=== PATIENT | male | born 1970 | race Caucasian/White ===

== ENCOUNTER 2017-05-26 17:07 | Emergency (ER) | payer SELFPAY ==
--- NOTE | ~2017-05-26 | CR63 ---
[facility] A Service of [facility] RADIOLOGY TEXT RESULTS PATIENT: LATASHA PARKER LOCATION: [facility] : [birth year] UNIT #: [id number] AGE: [address]: Marizol Sanchez MD SEX: M ORDER DR: [id number] [facility]. [place], [place] [address] [id number] E MR#: [id number] #: [id number] NAME: LATASHA PARKER. : 1970 SEX: M STUDY DATE/TIME: 05/26/2017 19:23 UNIT: [facility] ROOM: STUDY DESCRIPTION: CR Chest 2 View Attending Physician: Marizol Sanchez M.D. Ordering Physician: [facility] Primary Care Physician: Primary Care Physician No MEDICAL IMAGING REPORT This report is preliminary unless electronic signature is present EXAM Two-view chest 05/26/2017 INDICATIONS Shortness of air, cough, congestion and chest pain in a 47-year-old male. Symptoms began today. Tobacco abuse 20 years. TECHNIQUE Two-view chest performed. No comparisons. FINDINGS Cardiac silhouette is within normal limits. The vascularity is unremarkable. The lungs are hyperinflated but otherwise clear. No effusion or pneumothorax. There is degenerative change of the thoracic spine. IMPRESSION 1. Pulmonary hyperinflation. No effusion pneumothorax or dense consolidation. Dictated by... Rei Sneed M.D. THIS IS AN ELECTRONICALLY VERIFIED REPORT Rei Sneed M.D. at 05/27/2017 2:00 PM SREEKANTH/yasmeen TD: 05/27/2017 11:40 JOB #: [id number] MEDICAL IMAGING REPORT [facility] A Service [facility] RADIOLOGY TEXT RESULTS PATIENT: LATASHA PARKER LOCATION: [facility] : [birth year] UNIT #: [id number] AGE: [address]: Marizol Sanchez MD SEX: M ORDER DR: Page 1 of 1 COPY
--- NOTE | ~2017-05-26 | EKG ---
PATIENT: LATASHA PARKER UNIT #: [id number] Ventricular Rate: 95 BPM Atrial Rate: 95 BPM P-R Interval: 188 ms QRS Duration: 104 ms Q-T Interval: 416 ms QTC Calculation(Bezet): 522 ms P [place]: 64 degrees Calculated R [place]: 54 degrees Calculated T [place]: 64 degrees Diagnosis Line: Normal sinus rhythm Diagnosis Line: Prolonged QT Diagnosis Line: Abnormal ECG Diagnosis Line: No previous ECGs available Diagnosis Line: Confirmed by KIRILL METCALF MD ([id number]) on Diagnosis Line: 05/27/2017 11:09:52 AM INTERPRETING MD: DIXON GREENWOOD
--- NOTE | ~2017-05-26 | CT16 ---
[facility] A Service of [facility] RADIOLOGY TEXT RESULTS PATIENT: LATASHA PARKER LOCATION: [facility] : [birth year] UNIT #: [id number] AGE: [address]: Marizol Sanchez MD SEX: M ORDER DR: [id number] [facility]. [place], [place] [address] [id number] E MR#: [id number] Acc #: [id number] NAME: LATASHA PARKER. : 1970 SEX: M STUDY DATE/TIME: 05/26/2017 21:11 UNIT: [facility] ROOM: STUDY DESCRIPTION: CT Angio Chest for PE Attending Physician: Marizol Sanchez M.D. Ordering Physician: Marizol Sanchez M.D. Primary Care Physician: Primary Care Physician No MEDICAL IMAGING REPORT This report is preliminary unless electronic signature is present EXAM CTA chest INDICATION Shortness of air and chest pain. Pain with inspiration. Cough and congestion for [address] angiography of the chest utilizing 80 mL Isovue-370 IV contrast. Coronal 3-D MIP reconstructions and standard sagittal reconstructions were performed. This CT exam was performed with one or more of the following radiation dose reduction techniques: automatic exposure control, adjustment of mA and/or kV according to patient size, and iterative reconstruction. COMPARISON Chest radiograph dated 05/26/2017. FINDINGS No pulmonary embolus. No thoracic aneurysm. No pericardial or pleural effusion. No pathologically enlarged mediastinal or hilar lymph nodes. There is mild paraseptal emphysema in the lung apices. Mild atelectasis is noted in the lung bases. Limited images of the upper abdomen were obtained. There is no acute findings. No acute osseous abnormalities. IMPRESSION 1. Negative for pulmonary embolus. 2. Minimal atelectasis in lung bases, otherwise, no acute findings. [facility] A Service [facility] RADIOLOGY TEXT RESULTS PATIENT: LATASHA PARKER LOCATION: [facility] : [birth year] UNIT #: [id number] AGE: [address]: Marizol Sanchez MD SEX: M ORDER DR: Dictated by... Jalil Vaughan M.D. THIS IS AN ELECTRONICALLY VERIFIED REPORT Jalil Vaughan M.D. at 05/27/2017 3:09 PM Omkar TD: 05/27/2017 12:44 JOB #: [id number] MEDICAL IMAGING REPORT Page 1 of 1 COPY
[~2017-05-26 17:07] MED LIST: ATARAX PO; BACTRIM DS TABL1 TA1 PO; CAPOZIDE PO; CIPRO PO; FLEXERIL PO; FLEXERIL10 MG PO; IBUPROFEN PO; MOTRIN600 M2 PO; NO MEDICATIONS; PHENERGAN25 MG PO; PREDNISONE10 MG/DOSE PO
[2017-05-26 17:40] LABS: BASOPHIL# 0.2 X10e3 (0-0.3); BASOPHIL% 2.4 % (0-2.5); EOSINOPHIL# 0.5 X10e3 (0-0.7); EOSINOPHIL% 5.4 % (0.0-7.0); HEMATOCRIT 46.2 % (38.0-50.0); HEMOGLOBIN 16.2 gm/dL (13.0-16.0); LYMPHOCYTE# 2.6 X10e3 (1.0-3.5); LYMPHOCYTE% 30.7 % (17.0-45.0); MEAN CELL VOLUME 97.5 FL (83-96); MEAN CORPUSCULAR HEMOGLOBIN 34.2 PG (28-34); MEAN CORPUSCULAR HGB CONC 35.1 g/dL (30-36); MEAN PLATELET VOLUME 8.2 FL (6.5-11.5); MONOCYTE# 0.7 X10e3 (0-1.0); MONOCYTE% 8.8 % (3.0-12.0); NEUTROPHIL# 4.5 X10e3 (1.5-7.1); NEUTROPHIL% 52.7 % (40-75); PLATELET COUNT 243 X10e3 (140-420); RED BLOOD COUNT 4.74 X10e (3.90-5.60); RED CELL DISTRIBUTION WIDTH 12.6 % (11.0-15.5); WHITE BLOOD COUNT 8.5 X10e3 (4.0-10.5)
[2017-05-26 17:41] LABS: DIFF IND NO
[2017-05-26 18:22] LABS: ALBUMIN SERUM 4.2 g/dL (3.5-5.0); BILIRUBIN, DIRECT 0.1 mg/dL (0.0-0.2); BILIRUBIN,INDIRECT 0.7 mg/dL (0.0-0.9); BILIRUBIN,TOTAL 0.8 mg/dL (0.2-2.0); CALCIUM SERUM 8.7 mg/dL (8.4-10.2); CREATININE SERUM 0.9 mg/dL (0.6-1.4); GLOM FILT RATE Estimated 101.4 mL/min (>60); POTASSIUM 3.3 mmol/L (3.5-5.1); PROTEIN TOTAL SERUM 7.6 g/dL (6.0-8.3)
[2017-05-26 19:18] LABS: POC - TROPONIN <0.05 ng/mL (<=0.05)
[2017-05-26 19:33] LABS: POC - CKMB 1.4 ng/mL (0.0-7.9); POC - TROPONIN <0.05 ng/mL (<=0.05)
== END 2017-05-26 23:06 | disposition home or self-care (01) ==
LOC: CED 17:07
PROVIDERS: Student in an Organized Health Care Education/Training Program
DX: R09.1 Pleurisy (principal); M54.6 Pain in thoracic spine; I10 Essential (primary) hypertension; F17.200 Nicotine dependence, unspecified, uncomplicated
CPT/HCPCS: 36415; 71020; 71275; 80048; 80076; 82553; 84484; 85025; 93005; 94640; 96361; 96374; 96375; 99285; J2270; J2405; Q9967